=== PATIENT | male | born 1945 | race Caucasian/White ===

== ENCOUNTER 2016-10-30 06:35 | Emergency (ER) | payer MEDICARE, OTHER ==
[~2016-10-30] VITALS: Ht 182.9 cm; Wt 89.0 kg
[2016-10-30] MEDS ORDERED: METF500T4 PO (06:48)
[2016-10-30] MEDS ORDERED: GLYB2.5T2 PO (06:48)
[2016-10-30 07:21] LABS: BLOOD UREA NITROGEN 19 mg/dL (7-18)
[2016-10-30] MEDS ORDERED: CEFTRIAXONE 1,000 MG ONE (07:37)
[2016-10-30] MEDS ORDERED: LIDOCAINE 1%, 20ML ONE (07:37)
[2016-10-30 08:06] LABS: PATH.CAST-FLAG NOT PRESENT; SPERM-FLAG NOT PRESENT; SRC-FLAG NOT PRESENT; XTAL-FLAG NOT PRESENT; YLC-FLAG NOT PRESENT
[2016-10-30 09:21] VITALS: BP 132/61
== END 2016-10-30 09:24 | disposition home or self-care (01) ==
LOC: ED 08:21
DX: N13.2 Hydronephrosis with renal and ureteral calculous obstruction (principal); E11.9 Type 2 diabetes mellitus without complications; E03.9 Hypothyroidism, unspecified
CPT/HCPCS: 36415; 74000; 80048; 81001; 82040; 85025; 99285

== ENCOUNTER 2016-12-31 13:34 | Day surgery (SDC) | payer MEDICARE, OTHER ==
[~2016-12-31] VITALS: Ht 180.3 cm; Wt 91.5 kg
[~2016-12-31 13:34] MED LIST: GLYB2.5T2 PO; METF500T4 PO
[2016-12-31 13:59] VITALS: BP 173/77
[2016-12-31] MEDS ORDERED: LACTATED RINGERS 1,000 ML IV SCH (14:02)
[2016-12-31] MEDS ORDERED: LEVO100T5 PO (14:15)
[2016-12-31] MEDS ORDERED: CHOL10003 PO (14:15)
[2016-12-31] MEDS ORDERED: FENTANYL PF 100 MCG/2ML ONE ×2 (15:38→16:45)
[2016-12-31] MEDS ORDERED: EPHEDRINE 50 MG/ML, 1ML ONE (15:40)
[2016-12-31] MEDS ORDERED: PROPOFOL 10 MG/ML, 50ML ONE (15:40)
[2016-12-31] MEDS ORDERED: CEFAZOLIN 1,000 MG ONE (15:40)
[2016-12-31] MEDS ORDERED: ONDANSETRON 2MG/ML, 2ML ONE (15:40)
[2016-12-31] MEDS ORDERED: HYDROmorphone 1 MG/ML, 1ML IV PRN (16:00)
[2016-12-31] MEDS ORDERED: ACETAMINOPHEN 325 MG TABLET PO PRN (16:00)
[2016-12-31] MEDS ORDERED: OXYcodone 5 MG/5 ML ORAL.SOL UDC PO PRN (16:00)
[2016-12-31] MEDS ORDERED: ONDANSETRON 2MG/ML, 2ML IVPush PRN (16:00)
[2016-12-31] MEDS ORDERED: EPHEDRINE 50 MG/ML, 1ML IVPush PRN (16:00)
[2016-12-31] MEDS ORDERED: FENTANYL PF 100 MCG/2ML IV PRN (16:00)
[2016-12-31] MEDS ORDERED: HYDROcodone/APAP 7.5-325MG/15ML UDC PO PRN (16:00)
[2016-12-31] MEDS ORDERED: PROMETHAZINE 25 MG/ML, 1ML IV PRN (16:00)
[2016-12-31] MEDS ORDERED: LABETALOL 5MG/ML, 20ML IV PRN (16:00)
[2016-12-31] MEDS ORDERED: hydrALAzine 20 MG/ML, 1ML IV PRN (16:00)
[2016-12-31] MEDS ORDERED: metFORMIN 500 MG TABLET PO SCH (21:00)
[2017-01-01] MEDS ORDERED: CHOLECALCIFEROL 1,000 UNIT TABLET PO SCH (09:00)
[2017-01-01] MEDS ORDERED: LEVOTHYROXINE 100 MCG TABLET PO SCH (09:00)
== END 2016-12-31 19:30 ==
LOC: OUT 13:34
PROVIDERS: ATTEND Urology
DX: N20.2 Calculus of kidney with calculus of ureter (principal); I10 Essential (primary) hypertension; E11.9 Type 2 diabetes mellitus without complications
CPT/HCPCS: 52356; 82360; 82962; 88300; 93005; C1758; C2617; J0690; J2405; J2704; J3010

== ENCOUNTER 2017-06-23 11:19 | Inpatient (IN) | payer MEDICARE, OTHER ==
[~2017-06-23] VITALS: Ht 180.3 cm; Wt 102.3 kg
[~2017-06-23 11:19] MED LIST changes: +CHOL10003 PO; +LEVO100T5 PO
[2017-06-23] MEDS ORDERED: SODIUM CHLORIDE 0.9% 1,000 ML IV ONE (11:40)
[2017-06-23] MEDS ORDERED: SODIUM CHLORIDE FLUSH 10ML SYR IVF ONE (12:00)
[2017-06-23 12:03] LABS: BASOPHILS # (AUTO) 0.01 x10^3/uL (0-0.1); BASOPHILS % (AUTO) 0 % (0-1); EOSINOPHILS % (AUTO) 0 % (1-7); LYMPHOCYTES # (AUTO) 1.03 x10^3/uL (1-3.4); LYMPHOCYTES % (AUTO) 7 % (22-44); MD NO; MEAN CORPUSCULAR HEMOGLOBIN 31.4 pg (27.5-34.5); MEAN CORPUSCULAR HGB CONC 33.2 g/dL (33.2-36.2); MEAN CORPUSCULAR VOLUME 94.4 fL (81-97); MEAN PLATELET VOLUME 7.6 fL (7.4-10.4); MONOCYTES # (AUTO) 0.19 x10^3/uL (0.2-0.8); MONOCYTES % (AUTO) 1 % (2-9); NEUTROPHILS # (AUTO) 13.48 x10^3/uL (1.8-6.8); NEUTROPHILS % (AUTO) 92 % (42-75); PLATELET COUNT 283 x10^3/uL (130-400); RED BLOOD COUNT 3.77 x10^6/uL (4.38-5.82); RED CELL DISTRIBUTION WIDTH 12.5 % (9.4-14.8)
[2017-06-23 12:13] LABS: ALBUMIN 3.3 g/dL (3.4-5.0); ANION GAP 6 mmol/L (5-15); CALCIUM 8.1 mg/dL (8.5-10.1); CHLORIDE 106 mmol/L (98-107); CREATININE 2.22 mg/dL (0.7-1.3)
[2017-06-23] MEDS ORDERED: SODIUM CHLORIDE FLUSH 10ML SYR IVF PRN (12:30)
[2017-06-23] MEDS ORDERED: HYDROmorphone 2 MG/ML, 1ML ONE (13:12)
[2017-06-23] MEDS ORDERED: ONDANSETRON 2MG/ML, 2ML ONE ×2 (13:12→16:18)
[2017-06-23] MEDS ORDERED: SODIUM CHLORIDE 0.9% 1,000 ML IV SCH (13:13)
[2017-06-23] MEDS ORDERED: SODIUM POLYSTYRENE SULFONATE ORAL SUSP PO ONE (13:24)
[2017-06-23] MEDS ORDERED: ONDANSETRON 2MG/ML, 2ML IVPush PRN ×2 (13:30→15:00)
[2017-06-23] MEDS: HEPARIN 5,000 UNITS/ML, 1ML SQ SCH ×2 (13:30→23:48)
[2017-06-23] MEDS ORDERED: DOCUSATE 100 MG CAPSULE PO PRN (13:30)
[2017-06-23] MEDS ORDERED: BISACODYL 10 MG SUPP PR PRN (13:30)
[2017-06-23] MEDS ORDERED: ACETAMINOPHEN 325 MG TABLET PO PRN ×2 (13:30→15:00)
[2017-06-23] MEDS ORDERED: ONDANSETRON 2MG/ML, 2ML IVPush ONE (13:30)
[2017-06-23] MEDS ORDERED: HYDROcodone/APAP 5/325 TABLET PO PRN (13:30)
[2017-06-23] MEDS ORDERED: morphine SULFATE 10 MG/ML, 1ML IVPush PRN (13:30)
[2017-06-23] MEDS ORDERED: HYDROmorphone 1 MG/ML, 1ML IVPush PRN (13:30)
[2017-06-23] MEDS ORDERED: TEMAZEPAM 15 MG CAPSULE PO PRN (13:30)
[2017-06-23] MEDS ORDERED: ONDANSETRON ODT 4 MG PO PRN (13:30)
[2017-06-23] MEDS ORDERED: hydrALAzine 20 MG/ML, 1ML IVPush PRN (13:30)
[2017-06-23] MEDS ORDERED: LABETALOL 5MG/ML, 20ML IVPush PRN (13:30)
[2017-06-23] MEDS: CEFTRIAXONE PMX 1GM/50ML 50 ML IV SCH (13:30)
[2017-06-23] MEDS ORDERED: FENTANYL PF 250 MCG/5ML ONE (13:53)
[2017-06-23] MEDS ORDERED: MIDAZOLAM 1 MG/ML, 2ML ONE (13:53)
[2017-06-23] MEDS ORDERED: ROCURONIUM 10 MG/ML,10ML ONE (13:54)
[2017-06-23] MEDS ORDERED: LIDOCAINE-MPF 2% ,5ML ONE (13:54)
[2017-06-23] MEDS ORDERED: PROPOFOL 10 MG/ML, 20ML ONE (13:54)
[2017-06-23] MEDS ORDERED: PHENYLEPHRINE 10 MG/ML ONE (13:56)
[2017-06-23] MEDS ORDERED: DEXAMETHASONE 4 MG/ML, 1ML ONE ×2 (14:37)
[2017-06-23] MEDS ORDERED: FENTANYL PF 100 MCG/2ML IV PRN (15:00)
[2017-06-23] MEDS ORDERED: OXYcodone 5 MG/5 ML ORAL.SOL UDC PO PRN (15:00)
[2017-06-23] MEDS ORDERED: PROMETHAZINE 25 MG/ML, 1ML IV PRN (15:00)
[2017-06-23] MEDS ORDERED: HYDROmorphone 1 MG/ML, 1ML IV PRN (15:00)
[2017-06-23] MEDS ORDERED: MEPERIDINE/PF 25MG/0.5ML IVPush PRN (15:00)
[2017-06-23] MEDS ORDERED: LABETALOL 5MG/ML, 20ML IV PRN (15:00)
[2017-06-23] MEDS ORDERED: hydrALAzine 20 MG/ML, 1ML IV PRN (15:00)
[2017-06-23] MEDS ORDERED: GLYCOPYRROLATE 0.2MG/1ML, 5ML ONE (15:04)
[2017-06-23] MEDS ORDERED: INSULIN SINGLE DOSE, ER SQ-INSULIN ONE (15:59)
[2017-06-23] MEDS ORDERED: INSULIN REGULAR 100 UNITS/ML, 3ML VIAL SQ-INSULIN SCH (16:00)
[2017-06-23] MEDS: INSULIN ASPART 100 UNITS/ML, PEN SQ-INSULIN SCH ×2 (16:00→23:48)
[2017-06-23] MEDS ORDERED: OMNIPAQUE 350 MG/ML, 50 ML BOTTLE ONE (16:12)
[2017-06-23] MEDS ORDERED: hydrALAzine 20 MG/ML, 1ML ONE (16:18)
[2017-06-23 17:00] VITALS: BP 152/68
[2017-06-23 19:30] VITALS: BP 137/62
[2017-06-23] MEDS ORDERED: MORPHINE SULFATE 4 MG/ML, 1ML IV PRN (19:30)
[2017-06-23] MEDS ORDERED: ONDANSETRON 2MG/ML, 2ML IV PRN (19:30)
[2017-06-23 19:52] LABS: FREE T4 (FREE THYROXINE) 1.28 ng/dL (0.76-1.46); THYROID STIMULATING HORMONE 0.386 mIU/L (0.358-3.740)
[2017-06-23] MEDS: METFORMIN MC SCH (20:30)
[2017-06-23] MEDS ORDERED: LIDOCAINE GEL 2%, 5ML TP ONE (20:30)
[2017-06-23] MEDS ORDERED: LIDOCAINE PF 2%, 5ML INFIL ONE (20:30)
[2017-06-23] MEDS: LACTATED RINGERS 1,000 ML IV SCH (23:02)
[2017-06-23 23:56] VITALS: BP 154/69
[2017-06-24] MEDS: CEFTRIAXONE PMX 1GM/50ML 50 ML IV SCH ×2 (01:18→14:41)
[2017-06-24 03:32] VITALS: BP 136/62
[2017-06-24] MEDS: METFORMIN MC SCH ×2 (04:32→11:19)
[2017-06-24 05:13] LABS: BASOPHILS # (AUTO) 0.05 x10^3/uL (0-0.1); BASOPHILS % (AUTO) 0 % (0-1); EOSINOPHILS # (AUTO) 0.02 x10^3/uL (0-0.4); EOSINOPHILS % (AUTO) 0 % (1-7); LYMPHOCYTES # (AUTO) 2.17 x10^3/uL (1-3.4); LYMPHOCYTES % (AUTO) 15 % (22-44); MD NO; MEAN CORPUSCULAR HEMOGLOBIN 31.6 pg (27.5-34.5); MEAN CORPUSCULAR HGB CONC 33.4 g/dL (33.2-36.2); MEAN CORPUSCULAR VOLUME 94.8 fL (81-97); MEAN PLATELET VOLUME 8.4 fL (7.4-10.4); MONOCYTES # (AUTO) 0.88 x10^3/uL (0.2-0.8); MONOCYTES % (AUTO) 6 % (2-9); NEUTROPHILS % (AUTO) 78 % (42-75); PLATELET COUNT 293 x10^3/uL (130-400); RED BLOOD COUNT 3.64 x10^6/uL (4.38-5.82); RED CELL DISTRIBUTION WIDTH 12.3 % (9.4-14.8)
[2017-06-24] MEDS: LACTATED RINGERS 1,000 ML IV SCH (05:25)
[2017-06-24 05:26] LABS: CHLORIDE 106 mmol/L (98-107)
[2017-06-24 05:31] LABS: ANION GAP 7 mmol/L (5-15); CREATININE 1.94 mg/dL (0.7-1.3)
[2017-06-24] MEDS ORDERED: LEVOTHYROXINE 100 MCG TABLET PO SCH (06:00)
[2017-06-24 07:23] VITALS: BP 131/63
[2017-06-24] MEDS: INSULIN ASPART 100 UNITS/ML, PEN SQ-INSULIN SCH ×2 (07:36→11:19)
[2017-06-24] MEDS: HEPARIN 5,000 UNITS/ML, 1ML SQ SCH (08:45)
[2017-06-24] MEDS ORDERED: CHOLECALCIFEROL 1,000 UNIT TABLET PO SCH (09:00)
[2017-06-24] MEDS ORDERED: FAMOTIDINE 20 MG TABLET PO SCH (09:00)
[2017-06-24] MEDS ORDERED: TAMSULOSIN 0.4 MG CAP.ER.24H PO SCH (09:00)
[2017-06-24 11:29] LABS: MICROSCOPIC INDICATED
[2017-06-24] MEDS ORDERED: PHENAZOPYRIDINE 100 MG TABLET PO PRN (12:30)
[2017-06-24] MEDS ORDERED: ACET325T14 PO (12:38)
[2017-06-24] MEDS ORDERED: DOCU-131 PO (12:38)
[2017-06-24] MEDS ORDERED: TAMS-11 PO (12:38)
[2017-06-24] MEDS ORDERED: CIPR250T2 PO (12:38)
[2017-06-24] MEDS ORDERED: PHEN-582 PO (12:41)
[2017-06-24 13:15] VITALS: BP 137/52
== END 2017-06-24 16:10 | disposition home or self-care (01) | DRG 669 ==
LOC: ED 12:23 → 4NOR 12:24 → ED 12:55 → 4NOR 13:05 → DCLOUNGE 06-24 15:52
PROVIDERS: ADMIT Family Medicine; ATTEND Family Medicine
PROC: BT141ZZ Fluoroscopy of Kidneys, Ureters and Bladder using Low Osmolar Contrast (ICD-10-PCS; 2017-06-23)
PROC: 0T768DZ Dilation of Right Ureter with Intraluminal Device, Via Natural or Artificial Opening Endoscopic (ICD-10-PCS; 2017-06-23)
PROC: 0TC48ZZ Extirpation of Matter from Left Kidney Pelvis, Via Natural or Artificial Opening Endoscopic (ICD-10-PCS; principal; 2017-06-23 14:00)
PROC: 0T9B70Z Drainage of Bladder with Drainage Device, Via Natural or Artificial Opening (ICD-10-PCS; 2017-06-24)
DX: N13.6 Pyonephrosis (principal); E44.1 Mild protein-calorie malnutrition; N17.9 Acute kidney failure, unspecified; J84.112 Idiopathic pulmonary fibrosis; E11.9 Type 2 diabetes mellitus without complications; E03.9 Hypothyroidism, unspecified; N23 Unspecified renal colic; R31.29 Other microscopic hematuria; Z87.442 Personal history of urinary calculi
CPT/HCPCS: 36415; 74420; 80048; 81001; 82040; 82962; 84132; 84439; 84443; 85025; 85651; 87040; 93005; 96374; 96375; J0696; J1100; J1170; J1644; J1815; J2250; J2405; J2704; J3010; J3490; Q9967; C1758; C2617; J0360; J2370; J7030; J7120